=== PATIENT | female | born 1975 | race African-American/Black ===

== ENCOUNTER 2018-12-25 13:35 | Emergency (ER) | payer BC, OTHER ==
[~2018-12-25] VITALS: Ht 162.6 cm; Wt 90.7 kg
[~2018-12-25 13:35] MED LIST: AZITHROMYCIN 2250 MG PO; CHLORTHALIDONE25 MG PO; FLAGYL500 MG PO; FLEXERIL PO; IBUPROFEN 800800 M1 PO; MEDROLDOSEPACK PO; ONDANSETRON HCL4 M2 PO; PHENERGAN 25 MG25 M1 PO; PRILOSEC 20 MG20 MG PO; TESSALON PERLE100 MG PO; VENTOLIN HFA 1818 GM INH
[2018-12-25 14:58] LABS: ABSOLUTE NEUTROPHILS 3.7 thou/uL (1.4-8.2); BASOPHILS 0.5 % (0.0-2.0); HEMATOCRIT 37.8 % (37.0-47.0); HEMOGLOBIN 12.3 gm/dL (12.0-15.0); LYMPHOCYTES 22.4 % (24.0-44.0); MCH 26.3 pg (26.0-34.0); MCHC 32.4 g/dL (28.0-37.0); MONOCYTES 6.1 % (1.0-8.0); PLATELET COUNT 242 thou/uL (150-400); RBC 4.67 mil/uL (4.20-5.00); RDW 14.1 % (10.5-14.5); WBC 5.2 thou/uL (4.0-11.0)
[2018-12-25 15:09] LABS: CALCIUM 9.6 mg/dL (8.5-10.1); CREATININE 1.3 mg/dL (0.6-1.0)
[2018-12-25 15:11] LABS: POTASSIUM 2.9 mmol/L (3.5-5.1)
[2018-12-25 17:19] LABS: URINE CLARITY CLEAR; URINE COLOR YELLOW
[2018-12-25 17:20] LABS: URINE BILIRUBIN NEGATIVE (Negative); URINE BLOOD NEGATIVE (Negative); URINE GLUCOSE-RANDOM* NEGATIVE (Negative); URINE KETONES NEGATIVE (Negative); URINE LEUKOCYTES-REFLEX 1+ (Negative); URINE NITRITE-REFLEX NEGATIVE (Negative); URINE PROTEIN (DIPSTICK) NEGATIVE (Negative); URINE UROBILINOGEN 0.2 E.U./dl (0.2-1.0)
[2018-12-25 17:21] LABS: SQUAMOUS >10 Many /LPF (0-3)
[2018-12-25 17:22] LABS: CASTS None Seen /LPF (None Seen); URINE RBC None Seen /HPF (0-2); URINE WBC-REFLEX 0-5 Rare /HPF (0-5)
[2018-12-25 17:23] LABS: CRYSTALS None Seen /LPF (None Seen)
[2018-12-25] MEDS ORDERED: PHENERGAN 25 MG25 M1 PO (18:14)
[2018-12-25] MEDS ORDERED: KLOR-CON 1010 MEQ PO (18:14)
[2018-12-25] MEDS ORDERED: ZOFRAN ODT4 MG PO (18:14)
[2018-12-25 19:07] VITALS: BP 102/58
== END 2018-12-25 19:20 | disposition home or self-care (01) ==
LOC: ER 13:35
PROVIDERS: Emergency Medicine
DX: R50.9 Fever, unspecified (principal); E87.6 Hypokalemia; R19.7 Diarrhea, unspecified; Z90.710 Acquired absence of both cervix and uterus; F17.210 Nicotine dependence, cigarettes, uncomplicated; Z88.5 Allergy status to narcotic agent

== ENCOUNTER 2018-12-28 10:04 | Inpatient (IN) | payer BC, OTHER ==
[~2018-12-28] VITALS: Ht 162.6 cm; Wt 86.9 kg
[~2018-12-28 10:04] MED LIST changes: +KLOR-CON 1010 MEQ PO; +ZOFRAN ODT4 MG PO
[2018-12-28 10:05] VITALS: BP 98/63
[2018-12-28] MEDS ORDERED: TYLENOL EXTRA500 MG PO (10:28)
[2018-12-28 10:54] LABS: ABSOLUTE NEUTROPHILS 3.1 thou/uL (1.4-8.2); BASOPHILS 0.4 % (0.0-2.0); EOSINOPHILS 0.1 % (0.0-3.0); HEMATOCRIT 35.3 % (37.0-47.0); HEMOGLOBIN 11.8 gm/dL (12.0-15.0); LYMPHOCYTES 20.6 % (24.0-44.0); MCH 26.8 pg (26.0-34.0); MCHC 33.5 g/dL (28.0-37.0); MCV 80.2 fL (80.0-100.0); MONOCYTES 5.3 % (1.0-8.0); PLATELET COUNT 185 thou/uL (150-400); POLYS 73.6 % (36.0-66.0); RDW 14.4 % (10.5-14.5); WBC 4.2 thou/uL (4.0-11.0)
[2018-12-28 10:59] LABS: CALCIUM 9.3 mg/dL (8.5-10.1); CREATININE 1.3 mg/dL (0.6-1.0); POTASSIUM 3.6 mmol/L (3.5-5.1)
[2018-12-28 11:05] LABS: ALBUMIN 2.9 g/dL (3.4-5.0); TOTAL BILIRUBIN 0.3 mg/dL (<0.1-1.0)
[2018-12-28 12:18] LABS: PHOSPHORUS 2.7 mg/dL (2.5-4.9)
[2018-12-28] MEDS ORDERED: CHLORTHALIDONE25 MG PO (16:13)
[2018-12-28] MEDS ORDERED: OMEPRAZOLE40 MG PO (16:13)
[2018-12-28 17:20] VITALS: BP 96/56
[2018-12-28 17:45] VITALS: BP 125/71
[2018-12-28 17:45] LABS: TOTAL PROTEIN 7.5 g/dL (6.4-8.2)
[2018-12-28 18:11] LABS: TSH 1.903 uIU/mL (0.358-3.740)
--- NOTE | 2018-12-28 18:22 | NUR ---
PT CARE ASSUMED APPROX 1745. PT ALERT AND ORIENTED X4. DENIES SOA. REPORTS 9/10 PAIN IN BLE. RIGHT LEG XRAY DONE AT BEDSIDE. PT REPORTS EXTREMITY BEING VERY SENSITIVE. VSS. TRANSFER WITH [address] OF HEAD COMPLETED. NO DISTRESS NOTED.
[2018-12-28 19:50] VITALS: BP 93/54
[2018-12-28 21:35] VITALS: BP 92/50
[2018-12-29 01:17] VITALS: BP 93/54
[2018-12-29 02:04] LABS: HEMATOCRIT 33.6 % (37.0-47.0); HEMOGLOBIN 10.8 gm/dL (12.0-15.0); MCV 81.4 fL (80.0-100.0); RBC 4.13 mil/uL (4.20-5.00); RDW 14.7 % (10.5-14.5); WBC 4.7 thou/uL (4.0-11.0)
[2018-12-29 02:08] LABS: CALCIUM 8.6 mg/dL (8.5-10.1); CREATININE 1.2 mg/dL (0.6-1.0); MAGNESIUM 1.8 mg/dL (1.8-2.4); POTASSIUM 3.6 mmol/L (3.5-5.1)
--- NOTE | 2018-12-29 02:30 | NUR ---
ASSUMED CARE 1900. VSS. ASSESSMENT CHARTED. FAMILY AT BEDSIDE. C/O BI LAT LEG WEAKNESS AND PAIN/TINGLING/PRICKLY-RIGHT WORSE THAN LEFT, PARTIAL CONTROLED WITH PRN PAIN MEDS PER EMAR. UP TO COMMOD X1 ASSIST. NS @ 125. ROOM AIR. DENIES SOA, DIZZINESS, NV. PT BP REMAINED LOW AND HAS A TEMP, TACK PULLER NOTIFIED-ORDERS GIVEN. 500 NS BOLUS AND TYLENOL GIVEN. PLAN FOR CULTURES, LABS AND MRI THIS AM. WILL CONTINUE TO MONITOR AND WITH POC.
[2018-12-29 04:55] VITALS: BP 92/57
[2018-12-29 11:54] VITALS: BP 93/56
[2018-12-29 16:18] VITALS: BP 109/60
--- NOTE | 2018-12-29 19:36 | NUR ---
ASSESSMENTS DOCUMENTED. SINUS RHYTHM ON THE MONITOR. PT A/OX4. VERY ANXIOUS AT TIMES. REMAINS OF ISO FOR RULE OUT C-DIFF. NO EPISODES OF LOOSE STOOLS TO OBTAIN SAMPLE. AFEBRILE THIS SHIFT. VSS. MRI COMPLETE. IV FLUIDS INFUSING AT 125 ML/HR. SIGNIFICANT OTHER AT BEDSIDE. WORKED WITH PT/OT TODAY. UP TO WHEELCHAIR X2 ASSIST.
[2018-12-30 04:28] LABS: HEMATOCRIT 27.7 % (37.0-47.0); HEMOGLOBIN 9.2 gm/dL (12.0-15.0); MCH 26.7 pg (26.0-34.0); MCV 80.9 fL (80.0-100.0); RBC 3.43 mil/uL (4.20-5.00); RDW 14.4 % (10.5-14.5); WBC 4.6 thou/uL (4.0-11.0)
[2018-12-30 04:44] LABS: CALCIUM 8.4 mg/dL (8.5-10.1); CREATININE 0.9 mg/dL (0.6-1.0); MAGNESIUM 1.7 mg/dL (1.8-2.4); POTASSIUM 3.5 mmol/L (3.5-5.1)
[2018-12-30 05:17] VITALS: BP 91/53
--- NOTE | 2018-12-30 07:21 | NUR ---
ASSUME CARE 1900. PT/VITALS STABLE. BP RUNS LOW AND PT GETS FEBRILE OCCASSIONALLY. DENIES ANY PAIN. POOR MOBILITY. PT VERY WOBBLY AND USES CANE TO BSC. NEUROLOGY CONSULTED FOR FOLLOW UP. ADEQUATE REST NOTED. ASSESSMENT CHARTED. WILL CONTINUE TO MONITOR AND FOLLOW WITH POC
[2018-12-30 08:00] VITALS: BP 100/66
[2018-12-30 11:10] LABS: HIV ANTIBODY Non Reactive (Non Reactive)
[2018-12-30 12:00] VITALS: BP 101/63
--- NOTE | 2018-12-30 15:39 | NUR ---
ASSESSMENTS DOCUMENTED. PT REMAINS WEAK TO BILATERAL LOWER EXTREMITIES. UP WITH ASSIST X2. WORKED WITH PT/OT TODAY. AFEBRILE. FLUIDS INFUSING. CONSULT FOR [facility] TO [facility] PT. WILL CONTINUE TO MONITOR.
[2018-12-30 16:00] VITALS: BP 103/66
[2018-12-30 20:04] VITALS: BP 99/62
[2018-12-31 04:12] LABS: 25-HYDROXY TOTAL 4.4 ng/mL (30.0-100.0)
--- NOTE | 2018-12-31 05:36 | NUR ---
ASSUME CARE 1900. PT/VITALS STAB;E. NOTED SOME GENERALIZED JERKY MOVEMENTS WITH ACTIVITY ESPECIALLY. BP RUNS LOW. UP TO BSC X 2 ASSIST DUE TO INVOLUNTARY JERJY MOVEMENTS. ASSESSMETN CHARTED. PROGRESSING WITH POC SLOWLY. NEUROLOGY ON BOARD. REHAD CONSUILTED WELL. POSSIBLE DISCHARGE WITHIN A FEW DAYS. WILL CONTINUE TO MONITOR AND FOLLOW WITH POC
[2018-12-31 06:28] VITALS: BP 109/70
[2018-12-31 07:05] LABS: HEMATOCRIT 28.8 % (37.0-47.0); HEMOGLOBIN 9.6 gm/dL (12.0-15.0); MCH 26.9 pg (26.0-34.0); MCHC 33.3 g/dL (28.0-37.0); MCV 80.7 fL (80.0-100.0); RBC 3.57 mil/uL (4.20-5.00); RDW 14.8 % (10.5-14.5); WBC 4.8 thou/uL (4.0-11.0)
[2018-12-31 07:16] LABS: CALCIUM 8.7 mg/dL (8.5-10.1); CREATININE 0.9 mg/dL (0.6-1.0); MAGNESIUM 1.8 mg/dL (1.8-2.4); POTASSIUM 3.5 mmol/L (3.5-5.1)
[2018-12-31 07:44] VITALS: BP 116/57
[2018-12-31 11:23] VITALS: BP 113/55
--- NOTE | 2018-12-31 16:44 | NUR ---
PATIENT SEEN BY [facility]. PATIENT IS APPROPRIATE FOR ACUTE INPATIENT STAY. AUTHORIZATION PROCESS INITIATED AND INFORMATION SENT BY FAX TO PATIENT'S INSURANCE COMPANY. WILL AWAIT RESPONSE FROM INSURANCE COMPANY AND ADMIT TO ACUTE REHAB WHEN AUTH IS RECEIVED AND PATIENT IS MEDICALLY STABLE.
--- NOTE | 2018-12-31 16:55 | NUR ---
PT CARE ASSUMED APPROX 0700. PT ALERT AND ORIENTED X4. DENIES SOA. C/O INTERMITTENT GENERALIZED PAIN. VSS. PT CONTINUES TO HAVE SPASTIC INVOLUNTARY MOVEMENTS. NEURO WITNESSED. P/T PUT PT TO CHAIR BUT WHEN SPASTIC MOVEMENTS BECAME WORSE SHE PUT BACK TO BED FOR SAFETY. PT REFUSED TO BE BEDREST UNTIL MOVEMENTS CALMED. MOVEMENTS HAVE CALMED DOWN FOR NOW. PT SAFE TO USE BSC. IVF STOPPED DUE TO PT NOT WANTING TO ROTATE IV SITE AND CURRENT PIV IS LEFT AC SO IVF DOES NOT INFUSE PROPRERLY. PT AGREEABLE. DR KEITH AWARE. FAMILY AT BEDSIDE THIS SHIFT. UPDATED ON POC PER PT REQUEST. ALL DENY QUESTIONS AND CONCERNS REGARDING POC. NO DISTRESS NOTED.
[2018-12-31 17:30] VITALS: BP 92/46
--- NOTE | 2018-12-31 17:39 | NUR ---
Chart reviewd and case discussed with the care team. Neuro workup in progress but negative so far. [facility]/PT/OT evals have been completed and they are following along. Pt was indep and working fulltime prior to admission. She lives with her sign other and kids in a 2 story home. She has health insurance through her employer. [facility] will need to submit for insurance auth if they can accept. Will follow.
[2018-12-31 20:02] VITALS: BP 96/59
[2019-01-01 04:22] VITALS: BP 116/62
--- NOTE | 2019-01-01 05:05 | NUR ---
ASSESSMENT DOCUMENTED.PT RESTING IN NAD AT THIS TIME.VSS.PT AFEBRILE THIS SHIFT.PAIN MEDS FOR GENERALIZED PAIN WITH RELIEF.UP WITH STAFF ASSIST AND A WALKER TO BS,CONTINUES TO HAVE INVOLUNTARY JERKY MOVEMENTS ESPECIALLY WITH ACTIVITIES.MOM AT BEDSIDE.PT HAD A BED BATH LAST NIGHT GIVEN BY HER FAMILY MEMBER,TOLERATED.SR/SB ON MONITOR.PT DENIES ANY NEEDS AT THIS TIME.WILL CONT TO MONITOR PER POC.
[2019-01-01 06:24] LABS: HEMATOCRIT 29.3 % (37.0-47.0); HEMOGLOBIN 9.5 gm/dL (12.0-15.0); MCH 26.2 pg (26.0-34.0); MCHC 32.5 g/dL (28.0-37.0); MCV 80.7 fL (80.0-100.0); RBC 3.63 mil/uL (4.20-5.00); RDW 14.4 % (10.5-14.5); WBC 5.3 thou/uL (4.0-11.0)
[2019-01-01 06:40] LABS: CALCIUM 8.7 mg/dL (8.5-10.1); CREATININE 0.8 mg/dL (0.6-1.0); MAGNESIUM 1.8 mg/dL (1.8-2.4); POTASSIUM 3.7 mmol/L (3.5-5.1)
[2019-01-01 07:46] VITALS: BP 100/65
[2019-01-01 12:02] VITALS: BP 98/64
[2019-01-01 16:16] VITALS: BP 110/72
--- NOTE | 2019-01-01 16:38 | NUR ---
PT CARE ASSUMED APPROX 0700. PT ALERT AND ORIENTED X4. DENIES SOA. C/O GENERALIZED PAIN 06/11. PAIN MANAGED WITH HYDROCODONE. VSS. IVF REMAIN TO POC AND INFUSING. LEFT HAND IV PLACED SO THAT INFUSION WONT BE INTERRUPTED. LP PLANNED FOR TOMORROW IF COAGS ARE WNL. LOVENOX WILL BE HELD TONIGHT. PT UPDATED AND DENIES QUESTIONS OR CONCERNS REGARDING POC. INVOLUNTARY SPASTIC MOVEMENTS CONTINUED TO BE NOTED. DRS ARE AWARE. NO DISTRESS NOTED.
[2019-01-01 19:56] VITALS: BP 108/74
--- NOTE | 2019-01-02 04:47 | NUR ---
ASSUMED PT CARE AT 1900 WITHY BEDSIDE REPORT COMPLETED. PT IS ALERT AND ORIENTED WITH FAMILY AT BEDSIDE. NO SIGN OF DISTRESS NOTED, PT IS STABLE ON THE MONITOR. SCHEDULED MEDS ADMINISTERED TO PT. PAIN MEDS ADMINISTERED WELL. PT IS ON CONTINUOPUS FLUIDS, DENIES ANY FURTHER NEEDS AT THIS. CARE PLAN DISCUSSED WITH PATIENT.
[2019-01-02 05:56] VITALS: BP 114/64
[2019-01-02 06:55] LABS: APTT 31.7 Seconds (24.5-32.8); PROTIME 10.8 Seconds (9.3-11.4)
[2019-01-02 07:55] VITALS: BP 123/64
[2019-01-02 11:40] VITALS: BP 97/66
[2019-01-02 12:07] LABS: CERULOPLASMIN 38.8 mg/dL (19.0-39.0)
[2019-01-02 13:08] LABS: GAMMA TOCOPHEROL 0.6 mg/L (0.5-5.5)
[2019-01-02 15:45] VITALS: BP 139/95
--- NOTE | 2019-01-02 18:21 | NUR ---
PT CARE ASSUMED APPROX 0700. PT ALERT AND ORIENTED X4. DENIES SOA. C/O PAIN 8/10 GENERALIZED. PAIN MANAGED WITH HYDRCODONE. VSS. UP WITH MIN ASSIST TO BSC. APPETITE POOR. REFUSED INTERVENTION FOR CONSTIPATION. IVF REMOVED FROM POC. CONSENT SIGNED FOR LP TOMORROW. CLONAZEPAM DC'D DUE TO OVERSEDATION PER NEURO. NO CLINICAL CHANGES NOTED.
[2019-01-02 20:11] VITALS: BP 127/79
--- NOTE | 2019-01-03 03:19 | NUR ---
ASSESSMENT DOCUMENTED.PT RESTING IN NO ACUTE DISTRESS.VSS.PT FEELING MUCH BETTER TONIGHT WITH LESS SPASTIC/INVOLUNTARY MOVEMENTS EPISODES.FAMILY VISITED AND ASSISTED WITH BATH,PT TOLERATED.PAIN MEDS GIVEN FOR GENERALIZED PAIN W/RELIEF.PT TO HAVE LUMBAR PUNCTURE TODAY.POC IS TO DISCHARGE TO REHAB [facility] WHILE STABLE.WILL CONT TO MONITOR PER POC.
[2019-01-03 05:50] VITALS: BP 125/47
[2019-01-03 08:52] VITALS: BP 132/88
[2019-01-03 10:36] LABS: CSF CLARITY SLIGHTLY CLOUDY; CSF COLOR PINK; VOLUME 12.5 ml
[2019-01-03 10:40] LABS: CSF GLUCOSE 47 mg/dL (40-70); CSF PROTEIN 31 mg/dL (15-45)
[2019-01-03 10:45] LABS: CSF RBC 1360 /mm3
[2019-01-03 11:29] LABS: CSF EOSINOPHILS 0 %; CSF LYMPHOCYTES 95 %; CSF POLYS 2 %
[2019-01-03 11:33] LABS: CSF WBC 20 /mm3 (0-10)
[2019-01-03 11:50] VITALS: BP 112/87
--- NOTE | 2019-01-03 15:00 | NUR ---
abnormal csf no plan for dc today, updated [facility].
[2019-01-03 15:07] LABS: SERUM ALBUMIN 2.8 g/dL (3.5-5.5)
[2019-01-03 16:00] VITALS: BP 124/87
--- NOTE | 2019-01-03 18:29 | NUR ---
ASSUMED CARE OF PT AT SHIFT CHANGE. ASSESSMENTS CHARTED. MEDS GIVEN PER DEC. PT ALERT AND ORIENTED, C/O PAIN, MANAGED WITH PO PAIN MEDS. PT HAD LUMBAR PUNCTURE PROCEDURE--SEE RESULTS. PHYSICIAN CALLED REGARDING CRITICAL LAB RESULTS, ORDERS RECEIVED. PT STARTED ON IV ABX. FAMILY AT BEDSIDE THROUGHOUT SHIFT. PT CALLS APPROPRIATELY WITH NEEDS. PT UP TO COMMODE WITH X2 ASSIST, JERKY MOVEMENTS STILL PRESENT, NOT APPARENT COMPARED TO EARLIER IN SHIFT. DENIES CONCERNS AT THIS TIME. WILL CONTINUE TO MONITOR AND FOLLOW POC.
[2019-01-03 21:40] VITALS: BP 106/67
--- NOTE | 2019-01-04 03:13 | NUR ---
ASSESSMENT DOCUMENTED.PT RESTING IN NAD AT THIS TIME.PT WAS C/O NAUSEA AND FEELING BAD IN HER STOMACH AFTER TAKING MAG CITRATE,ZOFRAN GIVEN VIA IV THAT RELIEVED THE SX.NO BM THIS SHIFT,PT PASSING GAS AND HAS VERY ACTIVE BSX4 QUADS.UP TO BSC WITH ASSIST,NO JERKING INVOLUNTARY MOVEMENTS NOTED THOUGH PT STILL SEEMS VERY WEAK AND FATIQUED WITH SLIGHT ACTIVITIES.PT AWAITING TO TRANSFER TO FOR THERAPY.VSS.AFEBRILE.NO OTHER CONCERNS VOICED AT THIS TIME.WILL CONT TO MONITOR PER POC.
[2019-01-04 04:20] VITALS: BP 108/70
[2019-01-04 04:26] LABS: HEMATOCRIT 28.4 % (37.0-47.0); HEMOGLOBIN 9.3 gm/dL (12.0-15.0); MCH 26.4 pg (26.0-34.0); MCHC 32.7 g/dL (28.0-37.0); MCV 80.8 fL (80.0-100.0); RBC 3.52 mil/uL (4.20-5.00); RDW 14.9 % (10.5-14.5); WBC 6.6 thou/uL (4.0-11.0)
[2019-01-04 04:44] LABS: CALCIUM 8.6 mg/dL (8.5-10.1); CREATININE 0.9 mg/dL (0.6-1.0); POTASSIUM 3.9 mmol/L (3.5-5.1)
[2019-01-04 08:21] VITALS: BP 127/82
[2019-01-04 08:24] VITALS: BP 127/82
[2019-01-04 08:55] LABS: HSV PCR SOURCE CSF
--- NOTE | 2019-01-04 10:23 | NUR ---
spoke with patient regarding [facility] she is in agreement to transfer and hopeful insurance will authorize her rehab. She reports at this time her work is aware she is in hospital and do not need further information at this time. She works for post [employer]. [facility] aware patient medically stable today for transfer.
[2019-01-04] MEDS ORDERED: ERGOCALCIF50000 UNIT PO (15:14)
[2019-01-04] MEDS ORDERED: B12INJ IM (15:14)
[2019-01-04 16:00] VITALS: BP 115/72
--- NOTE | 2019-01-04 17:05 | NUR ---
Spoke with rehab liason who reports she has been in contact with insurance company. She reports they will review and may have answer this evening. If auth rec plan dc to [facility] in am. Insurance aware would dc in am. Updated RN.
--- NOTE | 2019-01-04 17:23 | HC ---
[facility] [place] [address] CONSULTATION Name: CHRIS PEDROZA Room #: 213-P ADM IN M.R.#: [id number] Admission: 12/28/18 ������������������ Attend Phys: Igor Bernal MD Discharge: ������������������ Date of : 77 Report #: [id number] THIS REPORT FOR: //name// CC: Igor Frias DATE OF SERVICE: 01/03/2019 REASON FOR CONSULTATION: I was asked to evaluate concerning possible meningitis. HISTORY OF PRESENT ILLNESS: The patient is a 43-year-old who initially presented to [facility] Emergency Room on 12/25/2018 with a 2-day history of fever, rhinorrhea, headache, myalgias and diarrhea. Temperature was up to 103 degrees. She was seen in the Emergency Room with no specific findings other than a potassium of 2.9, creatinine of 1.3. She had asymptomatic bacteriuria with no evidence of pyuria or hematuria. Her white count was normal with unremarkable differential. Urine culture was negative. Chest x-ray was clear. On room air, oxygen saturation was 98%. Influenza antigen was negative. She was given IV fluids and antiemetic. It was felt that she most likely had a viral illness. She was dismissed after hydration and recommended to return if no improvement over the next 48 hours. She stated that she did not improve and she returned as directed on 12/28/2018. In addition to the above issues, she started having paresthesias in her lower extremities along with weakness. She was noting a rash that involved her lower extremities and her arms. It was nonpruritic. She noted that her lower extremities were very tender to palpation. She was unable to walk with any stability. She had diarrhea that ceased after admission on 12/28/2018. When she was in the Emergency Room on that date, she was noted to be hypotensive. It was noted that she had mild weakness in both lower extremities with no other motor or sensory deficits. She was admitted and seen in consultation by Neurology. She was found to have good strength in her upper extremities, both proximally and distally. There was good strength proximally in her legs, although there was comment about tenderness in the pretibial areas. The patient was able to walk with a walker. Also, noted her CPK was elevated at 461. Other inflammatory markers were negative. Over the ensuing several days, she has improved with improving strength and left paresthesias. Her rash has resolved. Her maximum temperature on admission was 100 degrees and she has been afebrile since. Hemodynamically, she has been stable. Further workup included a CSF examination has revealed 20 WBCs, 95% lymphs with 1360 RBCs, glucose of 47 and a protein of 31. Imaging including MRI scan of the head and lumbar spine were negative for significant pathology. CT scan of the chest showed no evidence of pulmonary embolism, mild basilar pulmonary atelectasis, and right thyroid cyst versus hypodense nodule. Following her CSF examination, she was started on ceftriaxone and vancomycin. The patient denies any HIV risk factors. She has had no travel. [place] [address] CONSULTATION Name: CHRIS PEDROZA Room #: 213-P ADM IN M.R.#: [id number] Admission: 12/28/18 ������������������ Attend Phys: Igor Bernal MD Discharge: ������������������ Date of : 77 Report #: [id number] management. She has had no prior neurologic issues. She has several children at home with her. Her and her spouse have been otherwise healthy and no new illnesses have developed in the family household. She specifically states that her children have not had any febrile illnesses within the last month. REVIEW OF SYSTEMS: In addition to the above, she does note right frontal headache that has now resolved. She has had no other skin lesions or adenopathy. The rash that was present for several days has now resolved. She has had some change in her vision with more blurriness corrected by her glasses. No dental or oral mucosal lesions. No vaginal irritation or lesions noted. She has had no cough or sputum production. She has had nausea with no emesis. Diarrhea reported as liquid that is now resolved. She has had no gross blood in her stool. She denies any dysuria or frequency. There has been no back or flank pain. Denies any arthritis symptoms. Most of the discomfort is in her thighs and calves. She has had no other neurologic complaints outside of what is described above. No prior history of psychiatric disease. No hematologic or lymphatic diseases. ALLERGIES: NONSTEROIDAL ANTI-INFLAMMATORIES. PAST MEDICAL HISTORY: Gastric sleeve for obesity, hysterectomy. FAMILY HISTORY: Noncontributory. SOCIAL HISTORY: She is a smoker of cigarettes. No significant alcohol intake. MEDICATIONS: As noted on her DEC. PHYSICAL EXAMINATION: VITAL SIGNS: Afebrile and hemodynamically stable. GENERAL: She is alert and cooperative and pleasant, in no acute distress. SKIN: Without rash or lesion. No palpable adenopathy. HEENT: Eyes, without scleral icterus. Mouth without lesion or mucositis. NECK: Supple. LUNGS: Clear. CARDIOVASCULAR: Regular, without murmur, gallop or rub. ABDOMEN: Soft, nontender, no hepatosplenomegaly or mass. EXTREMITIES: Without clubbing, cyanosis or edema. Cranial nerves were intact. Strength in her upper extremities is normal. Strength in her lower extremities seemed appropriate in bed. She had some give way. She was able to raise her left leg with minimal issue. On trying to lift her right leg, she would shake in the bed and drop her leg down fairly quickly. Sensation in the legs and feet were normal. Deep tendon reflexes in the knees, ankle jerks were normal. Pulses were normal. Mood appeared normal. LABORATORY: CSF examination as noted above. 1360 RBCs, 20 WBCs, 95% lymphs, [address] [address] CONSULTATION Name: CHRIS PEDROZA Room #: 213-P ADM IN M.R.#: [id number] Admission: 12/28/18 ������������������ Attend Phys: Igor Bernal MD Discharge: ������������������ Date of : 77 Report #: [id number] protein 31, glucose 47. Sodium 142, potassium 3.7, bicarbonate 26, creatinine 0.8. Liver function tests: AST was 42, ALT 21 on admission with a bilirubin of 0.3, alkaline phosphatase 57. Lactate 1.5. CPK is now 281 where at peak was 461. Troponin negative. CRP 125. Hemoglobin 9.5, WBC 5.3, platelet count 269,000. Differential was unremarkable. Monospot negative. Sedimentation rate 65. HIV was negative. Urinalysis unremarkable. Blood culture is negative to date. Throat culture is negative. Urine culture mixed moi. IMAGING STUDIES: As noted above. IMPRESSION: A 43-year-old with febrile illness associated with rash, diarrhea and headache. I am suspecting viral etiology would be most likely. Now with further neurologic issues, I suspect post-inflammatory change. The CSF examination; although, she has mild elevation in her lymphocyte count, she does have a fair amount of red blood cells without elevated protein. I suspect a component of this is trauma at the sign of the tap. The patient otherwise has been healthy with no other issues. Does not fit Guillain-[place]. The patient states that she is currently improved from in the last week. Would recommend continued symptomatic therapies. We will add viral studies to her CSF. I think it is too late to check any stool analysis due to her having normal stools at this point. We will continue to observe off antibiotics. ��������������������������������������������� <ELECTRONICALLY SIGNED> ���������������������������������������� By: Fuad Contreras MD ��������������������������������������������� 01/04/19 1723 [id number] Fuad Contreras MD /nt
--- NOTE | 2019-01-04 18:11 | NUR ---
ASSUMED CARE OF PT AT SHIFT CHANGE. ASSESSMENTS CHARTED. MEDS GIVEN PER DEC. PT ALERT AND ORIENTED, NO C/O PAIN THIS SHIFT. DENIES CHEST PAIN, O2 SATS WNL ON ROOM AIR, NO S/SX OF CARDIAC OR RESP DISTRESS NOTED. PT HAVING LESS JERKY MOVEMENTS WHEN TRANSFERRING, WALKED TO BATHROOM WITH WALKER X1 ASSIST, TOLERATED WELL. DENIES CONCERNS AT THIS TIME. PLAN IS FOR PT TO GO TO REHAB [facility] TOMORROW. PT AND FAMILY UPDATED. WILL CONTINUE TO MONITOR AND FOLLOW POC.
[2019-01-04 19:37] VITALS: BP 113/60
[2019-01-05 04:37] VITALS: BP 114/80
[2019-01-05 05:11] LABS: LYME ANTIBODY SCREEN* <0.91 ISR (0.00-0.90)
[2019-01-05 07:37] VITALS: BP 112/71
--- NOTE | 2019-01-05 10:03 | NUR ---
ASSESSMENT DOCUMENTED. PT ALERT AND ORIENTED. VSS. DENIED HAVING PAIN OR DISCOMFORT. REPORT FEELING BETTER TODAY. ORDERS GIVEN TO DISCHARGE PT TO [facility]. PT LEFT THE FACILITY WITH ALL HER BELONGINGS.
--- NOTE | 2019-01-05 11:09 | PATH ---
[facility] [address] [place] [address] PATHOLOGY RPT PROCEDURE Name: CHRIS PEDROZA Room #: 213-P DIS IN M.R.#: [id number] ������������������ Admission: 12/28/18 ������������������ Date of : 77 Discharge: 01/05/19 Report #: [id number] Path Case #: [id number] Note [facility] Accession Number: [id number] TESTS RESULT FLAG UNITS REF RANGE LAB Clinician Provided Cytology Information No. of containers..01 Other (Miscellaneous) Source: CSF DIAGNOSIS: 02 CSF NEGATIVE FOR MALIGNANT CELLS. PAUCICELLULAR SPECIMEN WITH FEW LYMPHOCYTES PRESENT. Signed out by: 02 Everett Roy MD, Pathologist NPI- [id number] Performed by: 01 Porsha Manriquez, Corporate Logistics Manager ([facility]) Gross description: 01 2ML, CLEAR, COLORLESS /LCS FLAG LEGEND: L-Low Normal,H-High Normal,LL-Alert Low,HH-Alert High <-Panic Low,>-Panic High,A-Abnormal,AA-Critical Abnormal Performed at: [address] [place] [address] Mikel Panchal MD, [address] [place] [address] [facility], [place] [address] Everett Roy MD, [employer] Comment: A courtesy copy of this report has been sent to [employer] Comment: [phone], , . Specimen Comment: Report sent to Specimen Comment: A duplicate report has been generated due to demographic updates. Performed at: [address], [place], [place] [id number] MD Mikel Panchal MD Phone: [phone]
--- NOTE | 2019-01-05 12:52 | NUR ---
Pt dcing to [facility] today with ins auth in place per the liason. [facility] cm to follow for dc planning. Pt will likely need HH and dme at dc as she does not have a prior history.
[2019-01-05 14:10] LABS: CSF IgG 2.6 mg/dL (0.0-8.6)
[2019-01-06 10:09] LABS: ANTI-DNA SCREEN <1 IU/mL (0-9); ANTI-RNP <0.2 AI (0.0-0.9)
== END 2019-01-05 10:00 | DRG 312 ==
LOC: ER 10:04 → EROBS 15:02 → 2N 15:02 → ENTRNSPT 01-05 09:49 → EDTRNSPTSTS 01-05 09:50 → 2N 01-05 10:00
PROVIDERS: Hospitalist; Nurse Practitioner Family; Psychiatry & Neurology Neurology; Specialist; ADMIT Internal Medicine
DX: I95.1 Orthostatic hypotension (principal); N17.9 Acute kidney failure, unspecified; E87.6 Hypokalemia; D64.9 Anemia, unspecified; E55.9 Vitamin D deficiency, unspecified; F41.9 Anxiety disorder, unspecified; R27.0 Ataxia, unspecified; R26.9 Unspecified abnormalities of gait and mobility; E53.8 Deficiency of other specified B group vitamins; F17.210 Nicotine dependence, cigarettes, uncomplicated; K21.9 Gastro-esophageal reflux disease without esophagitis; Z98.84 Bariatric surgery status; Z90.710 Acquired absence of both cervix and uterus; Z79.899 Other long term (current) drug therapy; Z88.8 Allergy status to other drugs, medicaments and biological substances; Z28.21 Immunization not carried out because of patient refusal
CPT/HCPCS: 10081

== ENCOUNTER 2019-01-05 10:28 | Inpatient (IN) | payer BC, OTHER ==
[~2019-01-05] VITALS: Ht 165.1 cm; Wt 54.4 kg
--- NOTE | ~2019-01-05 | H ---
[facility] [place] [address] HISTORY AND PHYSICAL Name: CHRIS PEDROZA Room #: 515-P ADM IN M.R.#: [id number] Admission: 01/05/19 ������������������ Attend Phys: Ernesto Gtz MD Discharge: ������������������ Date of : 77 Report #: [id number] THIS REPORT FOR: //name// CC: Ernesto Frias DATE OF SERVICE: 01/05/2019 HISTORY AND PHYSICAL/POST-ADMISSION PHYSICIAN EVALUATION HISTORY OF PRESENT ILLNESS: The patient is a 43-year-old -[place] female who originally was admitted to [facility] on 12/28/2018 with bilateral lower extremity weakness, lower extremity burning, numbness, pain and inability to walk. She did have a fever a week prior up to 104 degrees with diarrhea that has since resolved. She had intermittent headache, right-sided neck pain, was hypotensive and dehydrated. She was given IV fluids. She was seen by Neurology, noted to have cerebellar signs elevation of CPK at 461 suggesting an element of inflammatory myopathy. There was also concern regarding malabsorption from her gastric sleeve procedure. She did have tremors, which did improve. She was seen by Infectious Disease and there is note of a lymphocytic meningeal reaction. She also has been given vitamins. Again, thought to be nutritional with her prior sleeve procedure. She sill has significant gait instability, decreased balance and has now been admitted for acute in-hospital inpatient rehabilitation with truncal ataxia. PAST MEDICAL HISTORY: Gastric sleeve procedure. HABITS: Cigarettes less than 1 pack per day. No history of alcohol abuse. MEDICATIONS: Please see the full medication listing. This includes vitamins, herbals, and supplements per report. ALLERGIES: NONSTEROIDALS. SOCIAL HISTORY: She lives in a house with her 4 children and boyfriend and there are other family members that apparently lives there as well. She did not utilize any assistive device. 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 She was independent with ADLs and IADLs. REVIEW OF SYSTEMS: She notes her tremor is better. Did not complain of any headache. Note difficulty swallowing. No chest pain, shortness of breath, abdominal discomfort. No focal extremity pain complaints. She did not complain of any specific swallowing difficulty. No further diarrhea or chilling. PHYSICAL EXAMINATION: GENERAL: She is a pleasant 43-year-old -[place] female, [place] [address] HISTORY AND PHYSICAL Name: CHRIS PEDROZA Room #: 515-P [facility] IN ..#: [id number] Admission: 01/05/19 ������������������ Attend Phys: Ernesto Gtz MD Discharge: ������������������ Date of : 77 Report #: [id number] distress. She is alert, pleasant, and oriented. VITAL SIGNS: Last recorded temperature 97.8, pulse 55, respirations 18, and blood pressure 112/71. HEENT: Appeared to be benign. NEUROLOGIC: Cranial nerves appear grossly intact. Facies are symmetric. She appears to be a good historian. CHEST: Sounded clear to auscultation. CARDIAC: Regular rate and rhythm. ABDOMEN: Bowel sounds positive, nontender. GENITOURINARY AND RECTAL: Deferred. EXTREMITIES: She has functional range of motion of both upper extremities. I would grade her strength at a 4 to 4-/5. There is some dysmetria. Lower extremities, no focal calf swelling. No distal lower extremity edema. Toe-tap was reasonably intact. No evidence of increased tone. She moves slowly and needs assistance with basic transfers. Gait is very slow, ambulating with a walker. She is min assist. ASSESSMENT: A 43-year-old -[place] female with the following problem list: 1. Truncal ataxia. 2. Lymphocytic meningeal reaction. 3. Functional mobility and ADL deficits. 4. Possible viral syndrome. 5. 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 6. Myoclonic jerks, which appeared decreased. PLAN: The patient has been admitted for acute in-hospital inpatient rehabilitation. From a postadmission physician evaluation perspective, there are no relevant changes since the preadmission screening. Please see the above review of prior and current medical and functional conditions and comorbidities. Please see the patient's previous and current functional status. As far as risk of complication, she has the above noted medical comorbidities. Initial plan of care involves the interdisciplinary acute inpatient rehabilitation program with the goal of maximizing her functional independence, so she can hopefully return back to her prior living situation. Prognosis is reasonably good. Estimated length of stay probably 7-10 days and potentially longer if warranted. Potential barriers would include her multiple medical comorbidities and decreased functional status. We will have the multiple curriculum consultant physicians continue to follow while she is on the acute inpatient rehab nielsen. ��������������������������������������������� ���������������������������������������� By: ��������������������������������������������� [id number] Ernesto Gtz MD /nt
--- NOTE | ~2019-01-05 | HC ---
[facility] [place] [address] CONSULTATION Name: CHRIS PEDROZA Room #: 515-P ADM IN M.R.#: [id number] Admission: 01/05/19 ������������������ Attend Phys: Ernesto Gtz MD Discharge: ������������������ Date of : 77 Report #: [id number] THIS REPORT FOR: //name// CC: Ernesto Gtz Mary Rodriguez DATE OF SERVICE: 01/09/2019 NEUROBEHAVIORAL STATUS EXAMINATION ATTENDING PHYSICIAN: Ernesto Gtz MD SUGAR CANE PLANTER MACHINE OPERATOR: Javier Mcmillan, PhD CLINICAL PRESENTATION: The patient is a 43-year-old female admitted to the rehab unit at [facility] for comprehensive inpatient rehabilitation program to improve functional mobility, activities of daily living and self-care and mental status secondary to deficits from a truncal ataxia. Her assessment on admission includes a lymphocytic meningeal reaction, functional mobility and ADL deficits, possible viral syndrome, nutritional issues associated with prior gastric sleeve procedure and myoclonic jerks, which appeared decreased. A complete description of her medical condition and history can be found in her medical record. Neuropsychological consultation was requested to provide assistance in the assessment of cognitive and emotional status and to provide recommendations and services. Prior to this most recent admission, she was living independently with her , 4 children and her [id number]. 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 She describes having initially been sick and developing a fever with a gradual deteriorating course. Her hospitalization eventually has provided adequate assessment and treatment and she reports an improving condition. The patient denies a history of depression or anxiety. She has minimal alcohol and occasional cannabis use. The patient had a bariatric sleeve procedure that was last year. She thought that she was managing the sleeve procedure with adequate nutritional management. However, nutritional deficits have been noted. TECHNIQUES UTILIZED: Clinical interview, review of medical records, staff consultation and behavioral observation, Mini-Mental status exam 2 standard version and clock drawing. EXAMINATION FINDINGS: The patient was alert and cooperative with the assessment. She accurately described events surrounding her admission. There is no evidence of aphasia. Her thoughts are logical and goal oriented. There is no evidence of thought disorder. She does not report auditory or visual hallucinations, subjective anxiety or depression. The patient also denies difficulty with sleep, appetite or cognitive functioning. Her primary symptom is reported as difficulty with walking. [address] [address] CONSULTATION Name: CHRIS PEDROZA Room #: 515-P [facility] IN M.R.#: [id number] Admission: 01/05/19 ������������������ Attend Phys: Ernesto Gtz MD Discharge: ������������������ Date of : 77 Report #: [id number] Her performance on the MMSE 2 brief version is within normal limits with a raw score 16 of 16. She was 3/3 for initial registration, 5/5 for orientation to time and place and 3/3 for immediate recall of 3 items after a brief time delay and distraction. Performance on the MMSE 2 standard version is within normal limits with a raw score of 29/30. She was 4/5 for serial 7s. Ability to copy a simple geometric design, writing a sentence, comprehension, naming and repetition were all within normal limits. Subtle difficulty with concentration is suggested. The patient was able to draw a clock and set the hands at a designated time. DIAGNOSTIC IMPRESSION: The patient may have had a mild neurocognitive disorder during her initial presentation and treatment. Cognitive ability appears to be recovering and approaching within normal limits. RECOMMENDATIONS: The patient may benefit from a followup evaluation of mood upon her return home. Difficulty with adjustment can occasionally occur with changes in mobility that are acute and possibly affecting her ability to return to her prior level of independence. While not reporting symptoms of depression at this time, they may develop if her physical symptoms persist. Thank you very much for allowing me to provide the consultation on this patient. ��������������������������������������������� ���������������������������������������� By: ��������������������������������������������� [id number] Javier Mcmillan, PhD /nt
--- NOTE | ~2019-01-05 | PLAN ---
[facility] [place] [address] [address] REHAB UNIT PLAN OF CARE Name: CHRIS PEDROZA Room #: 515-P ADM IN M.R.#: [id number] Admission: 01/05/19 ������������������ Attend Phys: Ernesto Gtz MD Discharge: ������������������ Date of : 77 Report #: [id number] THIS REPORT FOR: //name// CC: Ernesto Frias PROGRESS NOTE/OVERALL PLAN OF CARE SUBJECTIVE: The patient is seen back today in followup. She is in no distress. Last recorded temperature 36.7, pulse 60, respirations 20, blood pressure is 128/60. She is alert, pleasant. Transfers are min assist. Gait min assist 125 feet front-wheeled walker. In occupational therapy, lower body dressing is contact guard. ASSESSMENT: 1. Truncal ataxia. 2. Lymphocytic meningeal reaction. 3. Functional mobility and ADL deficits. 4. Possible viral syndrome. 5. 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 6. Myoclonic jerks, which are not noted on exam today. PLAN: The overall plan of care is based on the preadmission screen, post-admission physician evaluation and information garnered from therapy assessments. 1. Estimated length of stay is probably 7-10 days and likely longer if needed. 2. Medical prognosis is reasonably good. 3. Anticipated interventions includes interdisciplinary acute inpatient rehabilitation program. 4. Anticipated functional outcomes would be for the patient to hopefully become modified independent at least at the walker level for mobility and ADLs she can return back to the home setting. 5. Discharge destination would be back home with her children and boyfriend and other family members. 6. Expected therapy by discipline includes PT and OT, 1-1/2 hours per day each five days a week throughout the duration of the acute inpatient rehabilitation stay. ��������������������������������������������� ���������������������������������������� By: ��������������������������������������������� [id number] Ernesto Gtz MD /PMT
[~2019-01-05 10:28] MED LIST changes: +B12INJ IM; +ERGOCALCIF50000 UNIT PO; +OMEPRAZOLE40 MG PO; +TYLENOL EXTRA500 MG PO
--- NOTE | 2019-01-05 11:02 | NUR ---
1000 PATIENT ADMITTED TO ROOM 515. PATIENT IS ALERT AND ORIENTED X4. PATIENT JACKSON, INSULATION BLOWER ARE EQUAL. LUNGS ARE CLEAR AND DEMINISHED. ABD IS SOFT WITH BSX4. UP WITH WALKER AND GAIT BELT AND ASSIST OF 1 STAFF TO USE BATHROOM. VOIDING DUSTIN COLORED URINE. FALL AND SAFETY PROTOCOLS IN PLACE. DENIES ANY PAIN AT THIS TIME. OT EVAL COMPLETED. PT/ST EVALS TO BE DONE LATER. PATIENT HAS LEFT FORARM S.L. SITE WITHOUT REDNESS OR SWELLING. WILL CONTINUE TO MONITER.
--- NOTE | 2019-01-05 13:20 | NUR ---
Cm assessment completed at bedside. Pt known to cm from her acute inpt stay. Pt is a&ox4 and was indep and working fulltime prior to admission. 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 She drives and was very active prior to the onset of her illness. She is able to express her emotions in regards to her significant change in function and illness. She lives with her partner Siobhan and their 4 children ages 21 to 9. Siobhan's brother also lives there.Siobhan is the stay at home parent and normally manages the household and transporting the kids to/from school. The pt does not have any dme or hh history. She does not have an AD or DPOA for HC. She reports that their 2 story home has 3 steps to enter and she is able to stay on the main level and avoid going upstairs as her bedroom and bath is on the main level. 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 She wanted her mother added to the spokespersons list should we not be able to reach Siobhan. AD/dpoa info provided. Cm role introduced along with team conference and likely dc planning needs for dme and hh. Emotional support provided. Will f/u with the pt after team conference next week.
[2019-01-05 20:30] VITALS: BP 114/75
--- NOTE | 2019-01-06 00:15 | NUR ---
PT ALERT AND ORIENTED X 4. AMB TO BR WITH WALKER AND ASSIST X 1. STARTED SHAKING WHEN AMBULATING BUT SUBSIDED QUICKLY. PT C/O HEADACHE. HYDROCODONE GIVEN AT HS WITH ADEQUATE PAIN RELIEF VERBALIZED. LOVENOX GIVEN TONIGHT PER ORDER OF DR ZEPEDA. BED ALARM ON FOR SAFETY. PT CHECKED ON HOURLY ROUNDS.
[2019-01-06 05:48] LABS: HEMATOCRIT 27.7 % (37.0-47.0); MCH 26.4 pg (26.0-34.0); MCHC 32.5 g/dL (28.0-37.0); MCV 81.2 fL (80.0-100.0); RBC 3.41 mil/uL (4.20-5.00); RDW 15.1 % (10.5-14.5)
[2019-01-06 05:59] LABS: CALCIUM 8.8 mg/dL (8.5-10.1); CREATININE 0.8 mg/dL (0.6-1.0)
--- NOTE | 2019-01-06 08:14 | NUR ---
PT IS A&0X4, WALKS AT HOME, SYMPTOMS AROSE TWO WEEKS AGO STARTING W/COLD SX. AMB ONE SBA W/WALKER. ENCOURAGED PT TO USE CALL LIGHT FOR NEEDS. DECLINES NEED FOR HYDROCODONE D/T IT'S LETHARGIC EFFECTS. SHE WANTS TO HAVE ALL HER FACULTIES FOR REHAB. ENCOURAGED HER TO USE CALL LIGHT FOR ANY NEEDS. ADMITS TO NAUSEA AFTER THERAPY WILL CALL AND ASK FOR ANTIEMETIC PROPHYLACTIALLY
--- NOTE | 2019-01-06 14:10 | NUR ---
Nutrition: REC additional MVI and calcium supplementation in liquid or chewable form. Currently on vitamin D and B 12 supplementation for deficiencies. Noted alphatocopheral also low at 4.0 but if MVI ordered, no additional supplement recommended.
--- NOTE | 2019-01-06 14:19 | NUR ---
PT NOTED THAT AT HOME, SHE EATS FREQUENT SMALL PROTEIN-SNACK MEALS THROUGHOUT THE DAY, AND REQUESTED THAT WE PROVIDE THIS TO HER SO SHE DOESN'T FEEL NAUSEATED AND DEPLETED AFTER THERAPIES. SHE STATED THAT HER FAMILY CAN BRING IN THE FOODS THAT SHE IS USED TO EATING. PT HAD BARIATRIC SURGERY LAST YEAR, AND HAS EATEN THIS WAY SINCE THEN. NOTED TO HER THAT WE COULD OFFER PEANUT BUTTER WHEN REQUESTED, WELL ENSURES BID THAT WERE ORDERED TODAY BY THE CIRCULATING PROCESS INSPECTOR. RD DID CONSULT WITH HER TODAY WELL. WILL RELAY TO PT'S RN.
--- NOTE | 2019-01-06 15:30 | NUR ---
PT'S ATTRIBUTING FEELING OF NAUSEA TO NOT HAVING A SNACK PRIOR TO THERAPY (SHE DISCUSSED W/CINTHIA, R) GAVE HER A SUPPLY OF GISSELL CRACKERS AND PEANUT BUTTER.
[2019-01-06 20:14] VITALS: BP 128/70
--- NOTE | 2019-01-07 00:41 | NUR ---
PT ALERT AND ORIENTED X 4. AMB TO BR WITH WALKER AND ASSIST X 1. LEGS WEAK. PT C/O HEADACHE AT HS. HYDROCODONE GIVEN ORDERED. ADEQUATE PAIN RELIEF VERBALIZED. NO C/O NAUSEA. BED ALARM ON FOR SAFETY. PT APPEARS TO BE SLEEPING ON HOURLY ROUNDS.
[2019-01-07 08:20] VITALS: BP 124/74
--- NOTE | 2019-01-07 13:22 | NUR ---
PT ALERT AND ORIENTED TIMES FOUR. VSS, PT DENIES PAIN/SOA. PT UP WITH ASSIST OF ONE. PT TOLERATES MEDS AND MEALS. PT SLOWLY PROGRESSING TOWRADS POC GOALS.
[2019-01-07 20:00] VITALS: BP 97/54
--- NOTE | 2019-01-08 04:10 | NUR ---
assumed care at approx 1900 evening 01/07. pt alert and oriented x4, pleasant and cooperative. pt talking on phone at change of shift, denies complaints. pt took hs meds with water tolerating well. pt appears to be sleeping soundly with hourly rounding checks. bed alarm on and call light in reach. will continue to monitor.
[2019-01-08 07:30] VITALS: BP 112/67
--- NOTE | 2019-01-08 08:44 | NUR ---
ASSUMED CARE AT 0700. PATIENT IS ALERT AND ORIENTED X4. PATIENT JACKSON'S, ACADEMIC SPECIALIST ARE EQUAL. PATIENT IS UP WITH ASSIST OF 1 WITH GAIT BELT AND WALKER. PATIENT LUNGS ARE CLEAR AND HER ABD IS SOFT WITH BSX4. UP TO THE BATHROOM TO VOID DUSTIN COLORED URINE. FALL AND SAFETY PROTOCOLS IN PLACE. DENIES ANY PAIN. CONTINUES TO PROGRESS TOWARDS D/C GOALS. WILL CONTINUE TO MONITER.
[2019-01-08 21:19] VITALS: BP 133/81
--- NOTE | 2019-01-09 03:23 | NUR ---
assumed care at approx 1900 evening 01/08. pt alert and oriented x4, pleasant and cooperative. pts family here earlier in evening very supportive and helpful. pt denies complaints. pt appears to be sleeping soundly with hourly rounding checks. bed alarm on and call light in reach. will continue to monitor.
[2019-01-09 10:26] VITALS: BP 114/86
--- NOTE | 2019-01-09 15:22 | NUR ---
ASSUMED CARE OF PT AT 0730. PT IS A&OX4. IS ON ROOM AIR. DENIES PAIN. IS STABLE. IS UP WITH SBA, GB, WALKER. FALL PRECAUTIONS & HOURLY ROUNDING MAINTAINED. LABS & VITALS REVIEWED. PT IS CURRENTLY IN BED RESTING. CALL LIGHT WITHIN REACH. WILL CONTNUE TO MONITOR.
[2019-01-09 19:56] VITALS: BP 123/77
--- NOTE | 2019-01-10 05:20 | NUR ---
ASSUMED CARE OF PT 1915. PT ALERT AND ORIENTED X4. AMBULATES TO BATHROOM WITH STANDBY ASSIST OF ONE USING GAIT BELT AND WALKER. C/O HEADACHE X1, RELIEVED BY LORTAB. UP TO BATHROOM, SHOWER COMPLETED WITH ASSIST. HAS APPEARED TO BE SLEEPING WHEN CHECKED ON HOURLY ROUNDS. FALL PRECAUTIONS IN PLACE.
[2019-01-10 09:49] VITALS: BP 133/90
--- NOTE | 2019-01-10 15:45 | NUR ---
ASSUMED CARES AT 0700. PT AWAKE, ALERT AND ORIENTED*4. DENIES PAIN. VITALS REMAINED STABLE. SKIN REMAINS INTACT, NO EDEMA. PT EATING 100% OF HER MEALS, DENIES N&V. TOLERATED ALL THERAPIES WELL TODAY. UP WITH 1 PERSON, CHARLIE GAITBELT. Q1H VISUAL CHECKS. CALL LIGHT WITHIN REACH. FALL PRECAUTIONS IN PLACE
[2019-01-10 19:50] VITALS: BP 131/71
--- NOTE | 2019-01-10 23:30 | NUR ---
UP TO BATHROOM WITH SBA. ABLE TO SLEEP AFTER HYDROCODONE FOR HEADACHE.
[2019-01-11 07:15] VITALS: BP 113/69
--- NOTE | 2019-01-11 11:53 | NUR ---
ASSUMED CARE AT 0700. PATIENT IS ALERT AND ORIENTED X4. PATIEN JACKSON'S, SECURITY SOLUTIONS ARCHITECT ARE EQUAL. LUNGS ARE CLEAR , ABD IS SOFT WITH BSX4. UP WITH GAIT BELT AND ASSIST OF 1 STAFF TO THE BATHROOM. UP IN BED FOR MEALS. FALL AND SAFETY PROTOCOLS IN PLACE. DENIES ANY PAIN. CONTINUES TO PROGRESS TOWARDS D/C GOALS. WILL CONTINUE TO MONITER.
--- NOTE | 2019-01-11 13:55 | NUR ---
team meeting, recommendation 01/13/19 with outpt pt.
[2019-01-11 19:56] VITALS: BP 111/62
--- NOTE | 2019-01-12 00:35 | NUR ---
PT ALERT AND ORIENTED X 4. MODIFIED INDEPENDENT IN ROOM WITHOUT AIDS. PT C/O HEADACHE. HYDROCODONE GIVEN AT HS WITH COMPLETE RELIEF OF PAIN VERBALIZED. PT APPEARS TO BE SLEEPING ON HOURLY ROUNDS.
--- NOTE | 2019-01-12 07:55 | NUR ---
ASSUMED CARE AT 0700. PATIENT IS ALERT AND ORIENTED X4. PATIENT JACKSON'S, AERONAUTICAL DESIGN ENGINEER ARE EQUAL. PATIENT IS MOD/I IN ROOM AND [facility]. ABD IS SOFT WITH BSX4. BREAKFAST ON SIDE OF BED. FALL AND SAFETY PROTOCOLS IN PLACE. DENIES ANY PAIN AT THIS TIME. CONTINUES TO PROGRESS TOWARDS D/C GOALS. GRADUATION DAY TODAY. WILL CONTINUE TO MONITER
[2019-01-12 08:00] VITALS: BP 121/79
[2019-01-12 15:15] VITALS: BP 121/79
[2019-01-12 19:46] VITALS: BP 103/69
--- NOTE | 2019-01-13 02:49 | NUR ---
assumed care at approx 1900 evening 01/12. pt alert and oriented x4, appropriate and cooperative. pt modified independent in room tolerating with no problems. pt looking forward to being discharged today. pt given pain med for h/a pain and appears to be sleeping soundly. call light in reach. will continue to monitor.
[2019-01-13] MEDS ORDERED: B12INJ IM (08:11)
[2019-01-13] MEDS ORDERED: IRON325 PO (08:11)
[2019-01-13] MEDS ORDERED: ERGOCALCIF50000 UNIT PO (08:11)
[2019-01-13] MEDS ORDERED: OMEPRAZOLE40 MG PO (08:11)
[2019-01-13] MEDS ORDERED: VITAMIN B-1100 M2 PO (08:11)
[2019-01-13 08:57] VITALS: BP 130/82
--- NOTE | 2019-01-13 09:45 | NUR ---
FAXED SCRIPT AND PT NOTES FACE SHEET TO OUTPT THERAPY HERE AT [facility] SPOKE WITH DANEILITO SHE RECEIVED INFO AND WILL NOTIFY PT. AND SET UP VISITS.
--- NOTE | 2019-01-13 09:57 | NUR ---
ASSUMED CARES AT 0700. PT AWAKE, ALERT AND ORIENTED*4. C/O MILD HEADACHE AND STATED THAT ITS BECAUSE SHE HADN'T SLEPT WELL. VITALS REMAINED STABLE. SKIN REMAINS INTACT. PT IS MODIFIED INDEPENDENT IN ROOMAND TOLERATES WELL. PT TEACHING FOR DC TO BE COMPLETED WITH PT PRIOR TO DC TODAY. Q1H VISUAL CHECKS. CALL LIGHT WITHIN REACH. HALLWAYS CLEAR OF CLUTTER
== END 2019-01-13 13:58 | disposition home or self-care (01) | DRG 92 ==
LOC: ENTRNSPT 01-13 13:49 → EDTRNSPTSTS 01-13 13:50
PROVIDERS: ADMIT Physical Medicine & Rehabilitation
DX: R27.0 Ataxia, unspecified (principal); D62 Acute posthemorrhagic anemia; I95.9 Hypotension, unspecified; E86.0 Dehydration; F17.210 Nicotine dependence, cigarettes, uncomplicated; G25.3 Myoclonus; E53.8 Deficiency of other specified B group vitamins; E55.9 Vitamin D deficiency, unspecified; Z98.84 Bariatric surgery status; Z88.8 Allergy status to other drugs, medicaments and biological substances
CPT/HCPCS: 10112

== ENCOUNTER 2019-01-31 10:48 | Inpatient (IN) | payer BC, OTHER ==
[~2019-01-31] VITALS: Ht 162.6 cm; Wt 84.8 kg
[~2019-01-31 10:48] MED LIST changes: +IRON325 PO; +VITAMIN B-1100 M2 PO
[2019-01-31 10:49] VITALS: BP 140/95
[2019-01-31 13:51] LABS: ABSOLUTE NEUTROPHILS 15.2 thou/uL (1.4-8.2); BASOPHILS 0.7 % (0.0-2.0); EOSINOPHILS 0.5 % (0.0-3.0); HEMATOCRIT 33.9 % (37.0-47.0); HEMOGLOBIN 11.2 gm/dL (12.0-15.0); LYMPHOCYTES 11.4 % (24.0-44.0); MCH 27.2 pg (26.0-34.0); MCHC 33.1 g/dL (28.0-37.0); MCV 82.1 fL (80.0-100.0); MONOCYTES 5.6 % (1.0-8.0); PLATELET COUNT 294 thou/uL (150-400); POLYS 81.8 % (36.0-66.0); RBC 4.13 mil/uL (4.20-5.00); RDW 16.6 % (10.5-14.5); WBC 18.5 thou/uL (4.0-11.0)
[2019-01-31 13:57] LABS: CALCIUM 9.1 mg/dL (8.5-10.1); CREATININE 0.9 mg/dL (0.6-1.0); POTASSIUM 3.9 mmol/L (3.5-5.1)
[2019-01-31 14:03] LABS: ALBUMIN 3.1 g/dL (3.4-5.0); TOTAL BILIRUBIN 0.2 mg/dL (<0.1-1.0); TOTAL PROTEIN 7.8 g/dL (6.4-8.2)
[2019-01-31 14:53] LABS: URINE BILIRUBIN NEGATIVE (Negative); URINE BLOOD NEGATIVE (Negative); URINE CLARITY CLEAR; URINE COLOR YELLOW; URINE GLUCOSE-RANDOM* NEGATIVE (Negative); URINE KETONES NEGATIVE (Negative); URINE NITRITE-REFLEX NEGATIVE (Negative); URINE PROTEIN (DIPSTICK) NEGATIVE (Negative); URINE UROBILINOGEN 0.2 E.U./dl (0.2-1.0)
[2019-01-31 14:58] LABS: URINE LEUKOCYTES-REFLEX 1+ (Negative)
[2019-01-31 15:03] LABS: BACTERIA-REFLEX 1-9 Few /HPF (None Seen); CASTS None Seen /LPF (None Seen); CRYSTALS None Seen /LPF (None Seen); SQUAMOUS 4-10 Moderate /LPF (0-3); URINE RBC None Seen /HPF (0-2); URINE WBC-REFLEX 6-15 Few /HPF (0-5)
[2019-01-31 17:22] VITALS: BP 146/100
[2019-01-31 18:25] VITALS: BP 123/81
--- NOTE | 2019-01-31 18:40 | NUR ---
RECEIVED PT FROM ER APPROX 0635. A/O. NOTED COUGHING. C/O NECK PAIN. PT RESTING IN BED AT THIS TIME. NO OTHER CONCERNS VOICED.
[2019-01-31 20:36] VITALS: BP 129/73
[2019-02-01 04:36] VITALS: BP 139/84
[2019-02-01 05:53] LABS: HEMATOCRIT 32.2 % (37.0-47.0); HEMOGLOBIN 10.4 gm/dL (12.0-15.0); MCH 27.1 pg (26.0-34.0); MCHC 32.2 g/dL (28.0-37.0); RBC 3.84 mil/uL (4.20-5.00); RDW 17.2 % (10.5-14.5); WBC 13.3 thou/uL (4.0-11.0)
[2019-02-01 06:05] LABS: POTASSIUM 3.9 mmol/L (3.5-5.1)
--- NOTE | 2019-02-01 06:43 | NUR ---
patients cares were assumed at shift change. patient was assessed and meds were passed. hourly rounding was done and patient and patient did not apper to sleep much. she would not turn off tv or lights. the bed is in a low and locked position. the bed alarm is on.
[2019-02-01 08:00] VITALS: BP 103/66
[2019-02-01] MEDS ORDERED: ERGOCALCIF50000 UNIT PO (09:24)
[2019-02-01] MEDS ORDERED: VITAMIN B-12500 MCG PO (09:25)
--- NOTE | 2019-02-01 10:34 | NUR ---
assessment-pt LIVES AT HOME WITH HER HUISBAND AND CHILDREN. PT WALKS ON HER OWN AND DOES HER OWN ADLS. THEY HAVE A TUB/SHOWER. SPOUSE MAKES SURE PT GETS IN & OUT OF SHOWER SAFELY. PT HAS BEEN GOING TO OUTPT THERAPY HERE SINCE GOING HOME AFTER HAVING MENINGITIS. LAUNDRY IS LOCATED IN THE BASEMENT BUT HER CHILDREN HAVE BEEN HELPING WITH THIS. PT VOICES NO DC NEEDS AT THIS TIME. FOLLOWING TO ASSIST WITH DC PLANNING.
[2019-02-01 16:14] VITALS: BP 110/65
[2019-02-01 20:15] VITALS: BP 119/62
--- NOTE | 2019-02-02 03:35 | NUR ---
ASSUMED CARE AT 1900, ASSESSMENT COMPLETED. PT C/O FREQUENT COUGH WITH YELLOW SPUTUM PRODUCTION, REFUSED MUCINEX STATING IT JUST CAUSES HER TO COUGH TOO MUCH. DENIES SOB OR FATIGUE WITH EXERTION, LUNG SOUNDS SLIGHTLY COARSE ON RIGHT SIDE. DENIES PAIN OR NAUSEA. GOOD APPETITE. UP AD SUE, STEADY ON FEET. IV ABX INFUSING OVERNIGHT. NO OTHER CONCERNS, WILL CONTINUE TO MONITOR.
[2019-02-02 05:30] VITALS: BP 148/75
[2019-02-02 06:13] LABS: ABSOLUTE NEUTROPHILS 6.6 thou/uL (1.4-8.2); BASOPHILS 0.7 % (0.0-2.0); EOSINOPHILS 1.4 % (0.0-3.0); HEMATOCRIT 30.3 % (37.0-47.0); LYMPHOCYTES 24.2 % (24.0-44.0); MCH 27.6 pg (26.0-34.0); MCV 83.6 fL (80.0-100.0); MONOCYTES 7.4 % (1.0-8.0); PLATELET COUNT 293 thou/uL (150-400); POLYS 66.3 % (36.0-66.0); RBC 3.62 mil/uL (4.20-5.00); RDW 17.2 % (10.5-14.5)
[2019-02-02 07:50] VITALS: BP 144/81
[2019-02-02] MEDS ORDERED: MUCINEX600 MG PO (15:09)
[2019-02-02] MEDS ORDERED: AUGMENTIN 875-1 EACH PO (15:09)
[2019-02-02] MEDS ORDERED: AMBIEN 5 MG TABL5 M1 PO (15:09)
[2019-02-02] MEDS ORDERED: IPRAT-ALBUT 0.5-3 ML INH (15:09)
[2019-02-02] MEDS ORDERED: MIRALAX17 GM PO (15:09)
[2019-02-02] MEDS ORDERED: AMLODIPINE BESYL5 M1 PO (15:09)
[2019-02-02 15:34] VITALS: BP 137/73
[2019-02-02 16:35] VITALS: BP 137/73
--- NOTE | 2019-02-02 16:39 | NUR ---
PT TO DC TO HOME ALL BELONGINGS PACKED AND SENT WITH PATIENT. IV ACSESS DCD. RX'S SENT WITH PATIENT.
[2019-02-02 17:46] VITALS: BP 137/73
== END 2019-02-02 17:50 | disposition home or self-care (01) | DRG 689 ==
LOC: ER 10:48 → EROBS 16:12 → 4E 16:12 → ENTRNSPT 02-02 17:30 → 4E 02-02 17:50
PROVIDERS: Internal Medicine; Physician Assistant; ADMIT Internal Medicine
DX: N39.0 Urinary tract infection, site not specified (principal); J15.9 Unspecified bacterial pneumonia; D72.829 Elevated white blood cell count, unspecified; F17.210 Nicotine dependence, cigarettes, uncomplicated; E55.9 Vitamin D deficiency, unspecified; E53.8 Deficiency of other specified B group vitamins; Z98.84 Bariatric surgery status; Z79.899 Other long term (current) drug therapy; Z28.21 Immunization not carried out because of patient refusal; Z90.710 Acquired absence of both cervix and uterus
CPT/HCPCS: 10084; 10183